=== PATIENT | female | born 1970 | race Caucasian/White ===

== ENCOUNTER 2019-07-14 12:35 | Emergency (ER) | payer BC ==
[~2019-07-14] VITALS: Ht 149.9 cm; Wt 59.9 kg
[2019-07-14 13:06] VITALS: BP 132/74
--- NOTE | 2019-07-14 13:46 | NUR ---
PT TAKEN TO CHAIR B.
--- NOTE | 2019-07-14 13:53 | NUR ---
48/F C/O COUGH AND LT EAR PAIN X 3 DAYS. SUBJECTIVE FEVER LAST NIGHT. SORE THROAT PAIN 7/10 WORSE WITH "SWALLOWING SALIVA". MILD HEADACHE PAIN. APPEARS IN NAD. PMH: DENIES MEDS: DENIES
--- NOTE | 2019-07-14 14:35 | NUR ---
Patient discharged with v/s stable. Written and verbal after care instructions given and explained. Patient alert, oriented and verbalized understanding of instructions. Ambulatory with steady gait. All questions addressed prior to discharge. ID band removed. Patient advised to follow up with PMD. Rx of PROMETHAZINE given. Patient educated on indication of medication including possible reaction and side effects. Opportunity to ask questions provided and answered.
[2019-07-14 14:39] VITALS: BP 132/74
== END 2019-07-14 14:35 | disposition home or self-care (01) ==
LOC: MED 12:35
DX: J06.9 Acute upper respiratory infection, unspecified (principal)
CPT/HCPCS: 99283